=== PATIENT | male | born 1990 | race Caucasian/White ===

== ENCOUNTER 2017-02-07 18:02 | Emergency (ER) | payer OTHER ==
[~2017-02-07] VITALS: Ht 170.2 cm; Wt 96.4 kg
[2017-02-07] MEDS ORDERED: ASPIRIN 81 MG TABLET CHEW ONE (18:21)
[2017-02-07] MEDS ORDERED: SODIUM CHLORIDE FLUSH 10ML SYR IVF ONE (18:30)
[2017-02-07] MEDS ORDERED: ASPIRIN 81 MG TABLET CHEW PO ONE (18:30)
[2017-02-07 18:36] LABS: HEMATOCRIT 43.2 % (39.2-51.8); HEMOGLOBIN 14.7 g/dL (13.7-18.0); WHITE BLOOD COUNT 6.5 x10^3/uL (3.4-10)
[2017-02-07 18:47] LABS: BLOOD UREA NITROGEN 9 mg/dL (7-18)
[2017-02-07 18:53] LABS: ASPARTATE AMINO TRANSFERASE 39 U/L (15-37)
[2017-02-07 18:54] LABS: IS PT STATUS REG ER OR PRE ER? YES
[2017-02-07] MEDS ORDERED: LORazepam 1MG TABLET PO ONE (19:00)
[2017-02-07] MEDS ORDERED: LORazepam 1MG TABLET ONE (19:20)
[2017-02-07 20:03] VITALS: BP 128/72
== END 2017-02-07 20:06 | disposition home or self-care (01) ==
LOC: ED 19:45
DX: R07.9 Chest pain, unspecified (principal)
CPT/HCPCS: 36415; 71010; 80053; 84484; 85025; 93005; 99285